=== PATIENT | male | born 1950 ===

== ENCOUNTER → 2021-05-10 | Outpatient (CLI) | payer MEDICARE ==
[2021-05-10 14:55] VITALS: BP 163/111
[2021-05-10] MEDS: BAMLANIVIMAB (EUA) 700 MG, ETESEVIMAB (EUA) 1,400 MG in NS 50ML 50 ML IV ONE (15:07)
[2021-05-10 15:22] VITALS: BP 139/88
[2021-05-10 16:22] VITALS: BP 134/79
== END | disposition home or self-care (01) ==
LOC: OPTX 14:56
PROVIDERS: ATTEND Nurse Practitioner Family
DX: U07.1 COVID-19 (principal)
CPT/HCPCS: M0245; Q0245; Q0239